=== PATIENT | male | born 1950 | race Caucasian/White ===

== ENCOUNTER → 2024-05-04 12:57 | Outpatient (REF) | payer MEDICARE, SELFPAY | LOC: HWEVLT 12:57 | PROVIDERS: ATTENDING PHYSICIAN Radiology Vascular & Interventional Radiology | DX: I83.891 Varicose veins of right lower extremity with other complications (principal); I83.892 Varicose veins of left lower extremity with other complications | CPT/HCPCS: 93971 ==

== ENCOUNTER → 2024-06-22 09:48 | Outpatient (REF) | payer MEDICARE, SELFPAY | LOC: HWEVLT 09:48 | PROVIDERS: ATTENDING PHYSICIAN Radiology Diagnostic Radiology | DX: I83.891 Varicose veins of right lower extremity with other complications (principal) | CPT/HCPCS: 36478; C1769 ==

== ENCOUNTER → 2024-07-12 11:18 | Outpatient (REF) | payer MEDICARE, SELFPAY | LOC: HWEVLT 11:18 | PROVIDERS: ATTENDING PHYSICIAN Radiology Vascular & Interventional Radiology | DX: I83.891 Varicose veins of right lower extremity with other complications (principal) | CPT/HCPCS: 93971 ==